=== PATIENT | female | born 1950 | race American Indian/Alaskan Native ===

== ENCOUNTER 2018-07-12 14:52 | Emergency (ER) | payer MEDICARE ==
--- NOTE | 2018-07-12 14:58 | Emergency Department Report ---
Blank Doc - Documentation Documentation: This is a 68-year-old female that presents with left foot heel pain. Denies any injuries or trauma. HX of toe surgery but denies any toe pain. This initial assessment/diagnostic orders/clinical plan/treatment(s) is/are subject to change based on patient's health status, clinical progression and re- assessment by fellow clinical providers in the ED. Further treatment and workup at subsequent clinical providers discretion. Patient/guardians urged not to elope from the ED as their condition may be serious if not clinically assessed and managed. Initial orders include: 1- Patient sent to MAIN ED for further evaluation and treatment 2- Xray
[2018-07-12] MEDS ORDERED: PERCOCET 5/325 PO ONE (15:26)
--- NOTE | 2018-07-12 15:38 | Emergency Department Report ---
HPI - General Chief Complaint: Extremity Injury, Lower Time Seen by Provider: 07/12/18 14:57 - HPI HPI: Pt is a 68-year-old female who comes to the ER today complaining of pain at the bottom of her left foot. She states that she had surgery on her great toe back in May in [place]. She is here visiting her sister and is walking a lot more than normal. She is in a surgical boot and I suspect this increased walking is causing some of her pain It is the area of her foot that is striking the ground where she is having pain. There is no redness swelling or drainage at the surgical site itself- which is at the base of the great toe. The lower ext remity itself is without redness swelling or pain. Patient has no associated symptoms. She has no chest pain shortness of breath or fever. She is unable to tell me what medications she is on at home. On admission to the ER patient's vital signs are stable without tachycardia or hypoxia. ED Past Medical Hx - Past Medical History Hx Hypertension: Yes Hx Arthritis: Yes Hx Psychiatric Treatment: Yes (depression, anxiety) Hx Asthma: Yes Hx COPD: Yes Additional medical history: hyperthyroidism, fibromylgia - Surgical History Past Surgical History?: Yes Additional Surgical History: left foot - Family History Family history: no significant - Social History Smoking Status: Former Smoker Substance Use Type: None - Medications Home Medications: Home Medications Medication Instructions Recorded Confirmed Last Taken Type Ibuprofen [Motrin] 800 mg PO Q8HR PRN #20 tablet 07/12/18 Unknown Rx traMADol [Ultram] 50 mg PO Q6HR PRN #10 tablet 07/12/18 Unknown Rx ED Review of Systems ROS: Stated complaint: LT FOOT PAIN Other details as noted in HPI Comment: All other systems reviewed and negative Physical Exam - Physical Exam Vital Signs: Vital Signs 07/12/18 14:57 Temperature 97.9 F Pulse Rate 97 H Respiratory 16 Rate Blood Pressure 117/82 O2 Sat by Pulse 95 Oximetry Physical Exam: - Head Head exam: Present: atraumatic, normocephalic - Eye Eye exam: Present: normal appearance, EOMI. Absent: nystagmus - ENT ENT exam: Present: normal exam, normal orophraynx, mucous membranes moist, normal external ear exam, no lymphadenopathy - Neck Neck exam: Present: normal inspection, full ROM. Absent: tenderness, meningismus - Respiratory Respiratory exam: Present: normal lung sounds bilaterally. Absent: respiratory distress, wheezes, rales, rhonchi, stridor, chest wall tenderness, accessory muscle use, decreased breath sounds, prolonged expiratory - Cardiovascular Cardiovascular Exam: Present: regular rate, normal rhythm, normal heart sounds. Absent: bradycardia, tachycardia, irregular rhythm, systolic murmur, diastolic murmur, rubs, gallop, JVD, edema - GI/Abdominal GI/Abdominal exam: Present: soft, non tender on light and deep palpation. Absent: distended, tenderness, guarding, rebound, rigid, pulsatile mass - Rectal Rectal exam: Present: deferred - Extremities Exam Extremities exam: Present: normal inspection, full ROM, other (2+ pulses noted in the bilateral upper extremities. Bilateral lower extremities with 2+ DP bilateral. operative site at the prox great toe is without drainage, swelling or pain. The bottom of the foot, toward the heal is swollen. Pt has been in hard boot since surgery earlier in the month. - Back Exam Back exam: Present: normal inspection, full ROM. Absent: tenderness, CVA tenderness (R), CVA tenderness (L), paraspinal tenderness, vertebral tenderness - Neurological Exam Neurological exam: Present: alert, oriented X3, normal gait, other (Extraocular movements intact. Tongue midline. No facial droop. Facial sensation intact to light touch in the V1, V2, V3 distribution bilaterally. 5 and 5 strength in 4 extremities.. Sensation is intact to light touch in 4 extremities.). Absent: motor sensory deficit - Psychiatric Psychiatric exam: normal affect and mood - Skin Skin exam: Present: warm, dry, intact, normal color. Absent: rash ED Course Vital Signs 07/12/18 14:57 Temperature 97.9 F Pulse Rate 97 H Respiratory 16 Rate Blood Pressure 117/82 O2 Sat by Pulse 95 Oximetry ED Medical Decision Making - Lab Data Result diagrams: 07/12/18 16:05 07/12/18 16:05 - Radiology Data Radiology results: report reviewed, image reviewed - Medical Decision Making The calf/leg is not swollen; it is just the bottom of the foot. No other complaints. No sob, no cp etc. Pt states she is more active than normal given she is here visiting her sister. xray noted labs noted medicated for pain fortunato/boot/crutches for non weight bearing will dc home with her family and follow up with Dr Durham. Vital Signs 07/12/18 14:57 Temperature 97.9 F Pulse Rate 97 H Respiratory 16 Rate Blood Pressure 117/82 O2 Sat by Pulse 95 Oximetry - Differential Diagnosis ro stress fx foot; ro post op infection Critical care attestation.: If time is entered above; I have spent that time in minutes in the direct care of this critically ill patient, excluding procedure time. ED Disposition Clinical Impression: Bone spur of foot, Arthritis, Hallux valgus, Post-op pain Disposition: TO HOME OR SELFCARE Is pt being admited?: No Does the pt Need Aspirin: No Condition: Stable Instructions: Arthralgia (ED) Additional Instructions: DIET TOLERATED MEDS ORDERED TODAY IN ER FOLLOW INSTRUCTIONS ON THE BOTTLE FOLLOW UP with ortho socorro ACTIVITY TOLERATED MOTRIN OR TYLENOL FOR PAIN OR FEVER RETURN TO THE ER FOR WORSENING SYMPTOMS NOT RELIEVED BY YOUR MEDICATIONS. REST ELEVATE ICE THE FOOT NON WEIGHT BEARING TO ALLOW THE SWELLING TO DECREASE CONTINUE HOME MEDS. Prescriptions: Ibuprofen [Motrin] 800 mg PO Q8HR PRN #20 tablet PRN Reason: Pain , Severe (7-10) traMADol [Ultram] 50 mg PO Q6HR PRN #10 tablet PRN Reason: Pain Referrals: CHASE MEEHAN [Other] - 3-5 Days THUY DURHAM MD [Staff Physician] - 3-5 Days Time of Disposition: 16:31
[2018-07-12 16:24] LABS: Hematocrit 38.2 % (30.3-42.9); Hemoglobin 12.3 gm/dl (10.1-14.3); Mean Corpuscular HGB Conc 32 % (30-34); Mean Corpuscular Volume 83 fl (79-97); Platelet Count 341 K/mm3 (140-440)
--- NOTE | 2018-07-12 16:26 | XRay Report ---
PROCEDURE: XR FOOT 3+V LT TECHNIQUE: Left foot radiographs, 3 views. HISTORY: foot pain COMPARISONS: None currently available. FINDINGS: There is no acute fracture. There is no evidence for healing fracture. There is no acute dislocation. Hallux valgus. Moderate to severe arthritis at the 1st MTP joint. Mild arthrosis at the midfoot and interphalangeal joints. Achilles enthesophyte and tiny calcaneal plantar spur. There is no cortical destruction to suggest osteomyelitis. There are no suspicious osseous lesions. There are no radiopaque foreign objects. IMPRESSION: * No acute osseous findings. * Arthritis. * Calcaneal plantar spur and Achilles enthesophyte. * Hallux valgus. This document is electronically signed by Chin Garza MD., Jul 12 2018 04:24:18 PM ET
[2018-07-12 16:47] LABS: BUN/Creatinine Ratio 18; Blood Urea Nitrogen 14 mg/dL (7-17); Calcium 9.4 mg/dL (8.4-10.2); Hemolysis Index 26
[2018-07-12 17:15] VITALS: BP 125/78
== END 2018-07-12 17:13 | disposition home or self-care (01) ==
LOC: ED 14:52
DX: M77.32 Calcaneal spur, left foot (principal); M20.12 Hallux valgus (acquired), left foot; I10 Essential (primary) hypertension; J44.9 Chronic obstructive pulmonary disease, unspecified; M79.7 Fibromyalgia; E05.90 Thyrotoxicosis, unspecified without thyrotoxic crisis or storm; Z87.891 Personal history of nicotine dependence
CPT/HCPCS: 36415; 80048; 85027; 99284